=== PATIENT | male | born 1975 | race Caucasian/White ===

== ENCOUNTER 2016-09-02 10:18 | Emergency (ER) | payer MEDICAID | END 2016-09-02 11:31 | disposition home or self-care (01) | LOC: D.ER 10:18 | DX: J06.9 Acute upper respiratory infection, unspecified (principal); F17.200 Nicotine dependence, unspecified, uncomplicated; F41.9 Anxiety disorder, unspecified; F31.9 Bipolar disorder, unspecified; F60.3 Borderline personality disorder; E11.9 Type 2 diabetes mellitus without complications; Z79.4 Long term (current) use of insulin; I10 Essential (primary) hypertension; F43.10 Post-traumatic stress disorder, unspecified ==

== ENCOUNTER 2017-01-19 16:25 | Emergency (ER) | payer MEDICAID | END 2017-01-19 18:44 | disposition home or self-care (01) | LOC: D.ER 16:25 | DX: L25.9 Unspecified contact dermatitis, unspecified cause (principal); F31.89 Other bipolar disorder; F60.9 Personality disorder, unspecified; E11.9 Type 2 diabetes mellitus without complications; Z79.4 Long term (current) use of insulin; I10 Essential (primary) hypertension; F43.10 Post-traumatic stress disorder, unspecified ==

== ENCOUNTER 2019-06-16 18:27 | Emergency (ER) | payer MEDICAID ==
[~2019-06-16] VITALS: Ht 188 cm; Wt 84.1 kg
[2019-06-16 18:41] VITALS: Ht 188 cm; Wt 84.1 kg
[2019-06-16 19:12] LABS: APPEARANCE CLEAR (CLEAR); BILIRUBIN NEGATIVE (NEGATIVE); COLOR STRAW (YELLOW); GLUCOSE 1000 mg/dL (NEGATIVE); KETONE SMALL mg/dL (NEGATIVE); NITRITE NEGATIVE (NEGATIVE); PROTEIN NEGATIVE (NEGATIVE); UROBILINOGEN NORMAL (NORMAL)
[2019-06-16 19:21] LABS: UDS - AMPHET NEGATIVE QUAL (NEGATIVE); UDS - BARB NEGATIVE QUAL (NEGATIVE); UDS - BENZO NEGATIVE QUAL (NEGATIVE); UDS - COCAINE NEGATIVE QUAL (NEGATIVE); UDS - OPIATE NEGATIVE QUAL (NEGATIVE); UDS - PCP NEGATIVE QUAL (NEGATIVE); UDS - THC NEGATIVE QUAL (NEGATIVE)
[2019-06-16 19:34] LABS: BASOPHILS 0.2 % (0-2); EOSINOPHILS 1.1 % (0-7); HEMATOCRIT 35.9 % (42.0-54.0); HEMOGLOBIN 11.9 g/dL (13.5-17.5); IMMATURE GRANULOCYTES 0.2 % (0-5); LYMPHOCYTES 35.8 % (15-50); MCH 30.1 pg (26.0-34.0); MCHC 33.1 g/dL (31.0-37.0); MCV 90.7 fL (80.0-100.0); MONOCYTES 8.5 % (2-11); NEUTROPHILS 54.2 % (40-80); PLATELET COUNT 304 10x3/uL (130-400); RBC 3.96 10x6/uL (4.20-6.10); RDW 13.9 % (11.5-14.5); WBC 5.5 10x3/uL (4.8-10.8)
[2019-06-16 19:44] LABS: CALC OSMOLALITY 283 mosm/kg (275-300); CALCIUM 8.5 mg/dL (8.5-10.1); CARBON DIOXIDE 27.1 mmol/L (21.0-32.0); CHLORIDE - SERUM 103 mmol/L (98-107); CREATININE - SERUM 0.8 mg/dL (0.6-1.3); POTASSIUM - SERUM 4.3 mmol/L (3.5-5.1); SODIUM 138 mmol/L (136-145); UREA NITROGEN 11 mg/dL (7-18); eGFR NON AFRICAN AMERICAN > 90 mL/min (90-120)
[2019-06-16 19:45] LABS: GLUCOSE 269 mg/dL (74-106)
[2019-06-16 19:50] LABS: ALBUMIN 3.7 g/dL (3.4-5.0); ALKALINE PHOSPHATASE 68 U/L (46-116); ALT (SGPT) 25 U/L (10-68); BILIRUBIN - TOTAL 0.24 mg/dL (0.2-1.3); MAGNESIUM - SERUM 1.9 mg/dL (1.8-2.4); PROTEIN - SERUM 6.4 g/dL (6.4-8.2)
--- NOTE | 2019-06-17 01:03 | NUR ---
PATIENT HERE FOR SUICIDIAL THOUGHTS. HE HAS A HISTORY OF SUICIDIAL THOUGHTS AND DRINKING, HE HAS BEEN TREATED MANY TIMES IN THE PAST, HE IS HYPERVERBAL. PATIENT CAN NOT LIST ANY REASONS FOR LIVING AT THIS TIME. PATIENT OBSERVATION SHEET STARTED, SUICIDE PREVENTION SHEET GIVEN, SAFETY PLAN DISCUSSED WITH PATIENT, SAFETY CHECKLIST DONE, PATIENT HAS BLUE PAPER SCRUBS ON.
[2019-06-17 04:03] VITALS: BP 105/64
== END 2019-06-17 05:27 ==
LOC: D.ER 18:27
PROVIDERS: Family Medicine
DX: F60.89 Other specific personality disorders (principal); E11.9 Type 2 diabetes mellitus without complications; I10 Essential (primary) hypertension; E78.5 Hyperlipidemia, unspecified